=== PATIENT | female | born 1985 | race Two or more races ===

== ENCOUNTER → 2024-10-24 | Outpatient (CLI) | payer BC, SELFPAY ==
--- NOTE | 2024-10-24 09:17 | XR_ITS ---
Examination: Diagnostic digital mammography, unilateral, right Computer aided detection 3-D breast Tomosynthesis, unilateral Date and time of exam: October 24, 2024 0936 hours INDICATIONS: Palpable lump 12:00 position right breast 2 months Technique: Nonmagnified MLO, CC views of the right breast have been obtained, reconstructed from 3-D Tomosynthesis images. R2 computer aided detection program utilized for evaluation of suspicious masses and/or abnormal calcifications. 3-D Tomosynthesis images obtained. Findings: The breast is heterogeneously dense, which may obscure small masses Focal asymmetry 12:00 position right breast, likely corresponding to 12:00 oval mass 11 x 13 mm described on right breast sonogram today In addition the right breast sonogram describes retroareolar nodule with indistinct margins, focal asymmetry is present in the retroareolar region right breast on the spot compression view Impression: BI-RADS category 4: Suspicious for malignancy Suspicious nodule 12:00 position and retroareolar region right breast, best depicted on the right breast sonogram exam today Biopsy of these nodules is needed to exclude breast carcinoma, which should be done under ultrasound guidance
--- NOTE | 2024-10-24 09:23 | XR_ITS ---
Examination: Breast ultrasound, unilateral, right complete Date and time of exam: October 24, 2024 0950 hours INDICATIONS: Palpable lump in the upper right breast note is beginning one year ago, family history breast cancer Technique: Real-time davidson scale ultrasonographic imaging performed right breast including all 4 quadrants as well as nipple retroareolar and axillary region. Findings: 12:00 oval mass partially indistinct margins 11 x 13 mm Retroareolar nodule also partially indistinct margins 10 x 11 mm IMPRESSION: BI-RADS Category 4: Suspicious for malignancy Suspicious nodule 12:00 position right breast and retroareolar region right breast Biopsy of both nodules is needed to exclude breast carcinoma Both of these nodules are amenable to ultrasound-guided breast biopsy for diagnosis
== END | disposition home or self-care (01) ==
PROVIDERS: PCP Family Medicine; Referring Provider Specialist; Visit Provider Specialist
DX: R92.341 Mammographic extreme density, right breast (principal); N63.15 Unspecified lump in the right breast, overlapping quadrants; Z80.3 Family history of malignant neoplasm of breast
CPT/HCPCS: 76641; 77061; 77065; G0279

== ENCOUNTER → 2024-12-18 | Outpatient (CLI) | payer BC, SELFPAY ==
[2024-12-17 14:22] LABS: Basophils % (Auto) 1 % (0-2.5); Eosinophils # (Auto) 0.1 Thou/mm3 (0.0-0.5); Eosinophils % (Auto) 1 % (0-10); Hematocrit 37.2 % (36.0-46.0); Hemoglobin 13.1 g/dL (12.0-16.0); Immature Granulocytes % (Auto) 0 % (0-0); Immature Granulocytes Auto 0.01 Thou/mm3 (0.00-0.00); Lymphocytes # (Auto) 3.4 Thou/mm3 (1.0-4.8); Lymphocytes % (Auto) 39 % (10-50); Mean Corpuscular HGB Conc 35.2 g/dl (31.0-37.0); Mean Corpuscular Volume 85 fL (80-100); Monocytes # (Auto) 0.9 Thou/mm3 (0.0-0.8); Monocytes % (Auto) 10 % (0-12); Neutrophils # (Auto) 4.3 Thou/mm3 (1.8-7.7); Neutrophils % (Auto) 49 % (37-80); Nucleated Red Blood Cell % 0 /100 WBC (0); Platelet Count 367 Thou/mm3 (140-440); RDW Standard Deviation 40.9 fL (36.4-46.3); Red Blood Count 4.36 Miln/mm3 (4.00-5.20); White Blood Count 8.7 Thou/mm3 (3.6-11.0)
[2024-12-17 14:30] LABS: HCG,Qualitative Serum Negative
[2024-12-17 14:40] LABS: INR 0.9 (0.9-1.3); Partial Thromboplastin Time 29.6 Seconds (22.0-36.0); Prothrombin Time 10.3 Seconds (9.0-12.2)
--- NOTE | 2024-12-18 | XR_ITS ---
Examinations: Ultrasound-guided percutaneous breast biopsy, right breast retroareolar nodule Right breast sonography limited INDICATIONS: BI-RADS 4 suspicious nodule retroareolar region right breast on sonogram October 24, 2024 Exam date and time: December 18, 2024 1053 hours. Informed consent provided. Technique: A timeout was completed verifying correct patient, procedure, site, positioning, and special equipment if applicable Informed consent provided. The patient was placed in a supine position for the breast biopsy. Sonographic images of the breast were performed for localization of the suspicious nodule The patient's breast was prepped and draped in sterile fashion. Maximum sterile barrier technique, hand hygiene, ultrasound sterile technique 1% lidocaine was used to anesthetize the skin and breast adjacent to the suspicious nodule. Utilizing ultrasonographic guidance, 8 core biopsies were obtained of the suspicious nodule utilizing an 18-gauge BioPince needle. The specimens appears satisfactory. US guided breast biopsy marker placement. Estimated blood loss 3 cc. The patient tolerated the procedure well and there were no complications. Impression: Successful ultrasound-guided percutaneous breast biopsy, retroareolar nodule. Ultrasound guided breast biopsy marker placement.
--- NOTE | 2024-12-18 10:30 | XR_ITS ---
Examinations: Ultrasound-guided percutaneous breast biopsy, right breast 12:00 nodule Right breast sonography . Exam date and time: December 18, 2024 1105 hours INDICATIONS: BI-RADS 4 suspicious nodule 12:00 position right breast on sonogram October 24, 2024. Informed consent provided. Technique: A timeout was completed verifying correct patient, procedure, site, positioning, and special equipment if applicable Informed consent provided. The patient was placed in a supine position for the breast biopsy. Sonographic images of the breast were performed for localization of the suspicious nodule The patient's breast was prepped and draped in sterile fashion. Maximum sterile barrier technique, hand hygiene, ultrasound sterile technique 1% lidocaine was used to anesthetize the skin and breast adjacent to the suspicious nodule. Utilizing ultrasonographic guidance, 8 core biopsies were obtained of the suspicious nodule utilizing an 18-gauge BioPince needle. The specimens appears satisfactory. US guided breast biopsy marker placement. Estimated blood loss 3 cc. The patient tolerated the procedure well and there were no complications. Impression: Successful ultrasound-guided percutaneous breast biopsy, right breast 12:00 nodule. Ultrasound guided breast biopsy marker placement.
== END | disposition home or self-care (01) ==
PROVIDERS: Radiology Diagnostic Radiology; PCP Family Medicine; Referring Provider Specialist; Visit Provider Specialist
DX: D24.1 Benign neoplasm of right breast (principal); N64.1 Fat necrosis of breast; Z01.812 Encounter for preprocedural laboratory examination
CPT/HCPCS: 19083; 19084; 36415; 84703; 85025; 85610; 85730; A4648